=== PATIENT | female | born 2000 | race Caucasian/White ===

== ENCOUNTER 2019-05-06 11:33 | Emergency (ER) | payer OTHER ==
--- NOTE | 2019-05-06 11:46 | ER Document Report ---
ED Medical Screen (RME) - General Chief Complaint: Vaginal Bleeding Stated Complaint: BLEEDING Time Seen by Provider: 05/06/19 11:42 Mode of Arrival: Ambulatory Information source: Patient Notes: This 18-year-old female G1, P0 presents to the emergency department with complaints of noticing blood in the toilet and blood when she wiped this morning. Patient is approximately 12 weeks . Has not been assigned to HEREDIT[facility] PROGRAM COORDINATOR by [facility] [place] yet. No other complaints such as fever vomiting diarrhea. Reports slight abdominal cramps declines Tylenol. I have greeted and performed a rapid initial assessment of this patient. A comprehensive ED assessment and evaluation of the patient, analysis of test results and completion of the medical decision making process will be conducted by additional ED providers. Dictation of this chart was performed using voice recognition software; therefore, there may be some unintended grammatical errors. - Related Data Allergies/Adverse Reactions: No Known Allergies Allergy (Verified 05/06/19 11:34) Past Medical History - Social History Frequency of alcohol use: None Drug Abuse: None Physical Exam - Vital signs Vitals: Temp Pulse Resp BP Pulse Ox 98.2 F 94 H 14 119/66 97 05/06/19 11:34 05/06/19 11:34 05/06/19 11:34 05/06/19 11:34 05/06/19 11:34 Course - Vital Signs Vital signs: Temp Pulse Resp BP Pulse Ox 98.2 F 94 H 14 119/66 97 05/06/19 11:34 05/06/19 11:34 05/06/19 11:34 05/06/19 11:34 05/06/19 11:34
[2019-05-06 12:21] LABS: ABSOLUTE EOSINOPHILS # (AUTO) 0.2 10^3/uL (0.0-0.6); ABSOLUTE LYMPHOCYTES (AUTO) 1.2 10^3/uL (0.5-4.7); ABSOLUTE MONOCYTES (AUTO) 0.4 10^3/uL (0.1-1.4); ABSOLUTE NEUT (AUTO) 7.3 10^3/uL (1.7-8.2); BASOPHILS % (AUTO) 0.4 % (0-2); EOSINOPHILS % (AUTO) 2.3 % (0-6); HEMATOCRIT 37.6 % (36.0-47.0); HEMOGLOBIN 13.1 g/dL (12.0-15.5); LYMPHOCYTES % (AUTO) 13.6 % (13-45); MEAN CORPUSCULAR HEMOGLOBIN 30.1 pg (27.0-33.4); MEAN CORPUSCULAR HGB CONC 34.8 g/dL (32.0-36.0); MEAN CORPUSCULAR VOLUME 87 fl (80-97); MONOCYTES % (AUTO) 4.3 % (3-13); PLATELET COUNT 257 10^3/uL (150-450); RED BLOOD COUNT 4.33 10^6/uL (3.72-5.28); RED CELL DISTRIBUTION WIDTH 12.7 % (11.5-14.0); SEGMENTED NEUTROPHILS % (AUTO) 79.4 % (42-78); TOTAL CELLS COUNTED % (AUTO) 100 %; WHITE BLOOD COUNT 9.1 10^3/uL (4.0-10.5)
[2019-05-06 12:27] LABS: APPEARANCE,URINE SLIGHTLY-CLOUDY; BILIRUBIN,URINE NEGATIVE (NEGATIVE); COLOR,URINE YELLOW; GLUCOSE, URINE NEGATIVE (NEGATIVE); KETONES,URINE NEGATIVE (NEGATIVE); LEUKOCYTE ESTERASE,URINE NEGATIVE (NEGATIVE); NITRITE,URINE NEGATIVE (NEGATIVE); PROTEIN,URINE NEGATIVE (NEGATIVE); URINE SPECIFIC GRAVITY 1.017; UROBILINOGEN,URINE NEGATIVE mg/dL (<2.0)
[2019-05-06 12:40] LABS: ALBUMIN 4.2 g/dL (3.7-5.6); ALKALINE PHOSPHATASE 57 U/L (50-135); ANION GAP 10 (5-19); ASPARTATE AMINO TRANSFERASE 21 U/L (5-30); BILIRUBIN,DIRECT 0.1 mg/dL (0.0-0.4); BILIRUBIN,TOTAL 0.1 mg/dL (0.2-1.3); BLOOD UREA NITROGEN 9 mg/dL (7-20); CALCIUM 9.9 mg/dL (8.4-10.2); CARBON DIOXIDE 25 mmol/L (22-30); CHLORIDE 103 mmol/L (98-107); GLUCOSE 82 mg/dL (75-110); POTASSIUM 4.2 mmol/L (3.6-5.0); TOTAL PROTEIN 6.8 g/dL (6.3-8.2)
--- NOTE | 2019-05-06 13:33 | RADIOLOGY REPORT (SQ) ---
EXAM DESCRIPTION: U/S OB TRANSVAGINAL W/O DOP COMPLETED DATE/TIME: 05/06/2019 1:22 pm REASON FOR STUDY: VAG BLEED PREG COMPARISON: None. TECHNIQUE: Transabdominal static and realtime grayscale images acquired of the pelvis. Additional se lected spectral and color Doppler images recorded. All images stored on PACs. bHCG: Pending CLINICAL DATES: 12 weeks, 3 days LIMITATIONS: None. FINDINGS: FETUS: Single Living intrauterine . ULTRASOUND EGA: 12 weeks, 4 days ULTRASOUND JUAN MIGUEL: 11/14/2019 EFW: Not applicable less than 20 weeks. CRL: 6.1 cm FHR: 162 beats per minute. SURVEY: Too early to assess. AMNIOTIC FLUID: Adequate amount. PLACENTA: Anterior SUBCHORIONIC BLEED: No. SIZE OF BLEED: Not applicable. UTERUS: No masses. No anomalies. CERVICAL LENGTH: 2.7 cm Closed. RIGHT ADNEXA: Normal ovary with normal vascular flow. No adnexal free fluid. No adnexal masses. LEFT ADNEXA: Normal ovary with normal vascular flow. No adnexal free fluid. No adnexal masses. FREE FLUID: None. OTHER: No other significant finding. IMPRESSION: LIVING INTRAUTERINE . EGA 12 weeks, 4 days Trimester of : First trimester - 0 to 13 weeks. TECHNICAL DOCUMENTATION: JOB ID: [id number] [employer]- All Rights Reserved rev-01/01 Reading location - IP/workstation name: [email or web address]
--- NOTE | 2019-05-06 15:50 | ER Document Report ---
ED General - General Chief Complaint: Vaginal Bleeding Stated Complaint: BLEEDING Time Seen by Provider: 05/06/19 11:42 Primary Care Provider: JV VAZQUEZ MD [Primary Care Provider] - Follow up as needed Mode of Arrival: Ambulatory - [facility] Notes: 18-year-old female to the emergency department with complaints of vaginal bleeding that began this morning. She states that she is about 12 weeks . She states that she has not had an ultrasound because she has not been seen by OB through [facility] [place]. She states that she had a gush of blood and some pelvic cramping. She states she has not seen any clots or tissue. This is her first . She denies any urinary complaints. She denies any flank pain. She denies any fevers, chills, chest pain, shortness of breath. She denies any vaginal discharge. - Related Data Allergies/Adverse Reactions: No Known Allergies Allergy (Verified 05/06/19 11:34) Past Medical History - General Information source: Patient, Relative - Social History Smoking Status: Current Some Day Smoker Frequency of alcohol use: None Drug Abuse: None Lives with: Spouse/Significant other Family History: Reviewed & Not Pertinent Patient has suicidal ideation: No Patient has homicidal ideation: No Review of Systems - Review of Systems Constitutional: denies: Chills, Fever EENT: No symptoms reported Cardiovascular: denies: Chest pain, Palpitations, Heart racing, Dyspnea, Syncope, Dizziness, Lightheaded Respiratory: denies: Cough, Short of breath Gastrointestinal: Abdominal pain. denies: Diarrhea, Nausea, Vomiting Genitourinary: denies: Burning, Dysuria, Discharge, Frequency, Flank pain Female Genitourinary: , Vaginal bleeding. denies: Vaginal discharge Musculoskeletal: No symptoms reported Skin: No symptoms reported Hematologic/Lymphatic: No symptoms reported Neurological/Psychological: No symptoms reported -: Yes All other systems reviewed and negative Physical Exam - Vital signs Vitals: Temp Pulse Resp BP Pulse Ox 98.2 F 94 H 14 119/66 97 05/06/19 11:34 05/06/19 11:34 05/06/19 11:34 05/06/19 11:34 05/06/19 11:34 Interpretation: Normal - General General appearance: Appears well, Alert In distress: None - HEENT Head: Normocephalic, Atraumatic Eyes: Normal Pupils: PERRL - Respiratory Respiratory status: No respiratory distress Chest status: Nontender Breath sounds: Normal Chest palpation: Normal - Cardiovascular Rhythm: Regular Heart sounds: Normal auscultation Murmur: No - Abdominal Inspection: Normal Distension: No distension Bowel sounds: Normal Tenderness: Nontender Organomegaly: No organomegaly - Genitourinary External exam: Normal Speculum exam: Cervix closed. No: Products of conception Vaginal bleeding: Moderate Biman[place] exam: Normal, Uterus enlarged. No: Cervical motion tender, Adnexal mass, Adnexal tenderness Notes: Chaperoned by texting me. Noted blood in vaginal vault but cervix is closed. No evidence of products of conception emanating from the cervix. She has no cervical motion tenderness and no adnexal tenderness. She has no evidence of mass in the adnexa. She has a mildly enlarged uterus. External genitalia is within normal limits without lesions. - Back Back: Normal, Nontender. No: CVA tenderness - Neurological Neuro grossly intact: Yes Cognition: Normal Orientation: AAOx4 Stevan Coma Scale Eye Opening: Spontaneous [place] Coma Scale Verbal: Oriented [place] Coma Scale Motor: Obeys Commands [place] Coma Scale Total: 15 Speech: Normal Motor strength normal: LUE, RUE, LLE, RLE Sensory: Normal - Psychological Associated symptoms: Normal affect, Normal mood - Skin Skin Temperature: Warm Skin Moisture: Dry Skin Color: Normal Course - Re-evaluation Re-evalutation: 05/06/19 15:48 Laboratory 05/06/19 05/06/19 05/06/19 11:50 11:50 11:50 WBC 9.1 RBC 4.33 Hgb 13.1 Hct 37.6 MCV 87 MCH 30.1 MCHC 34.8 RDW 12.7 Plt Count 257 Lymph % (Auto) 13.6 [place] % (Auto) 4.3 Eos % (Auto) 2.3 Baso % (Auto) 0.4 Absolute Neuts (auto) 7.3 Absolute Lymphs (auto) 1.2 Absolute Monos (auto) 0.4 Absolute Eos (auto) 0.2 Absolute Basos (auto) 0.0 Seg Neutrophils % 79.4 H Sodium 137.7 Potassium 4.2 Chloride 103 Carbon Dioxide 25 Anion Gap 10 BUN 9 Creatinine 0.47 L Est GFR ( Amer) > 60 Est GFR (MDRD) Non-Af > 60 Glucose 82 Calcium 9.9 Total Bilirubin 0.1 L Direct Bilirubin 0.1 Neonat Total Bilirubin Not Reportable Neonat Direct Bilirubin Not Reportable Neonat Indirect Bili Not Reportable AST 21 ALT 9 Alkaline Phosphatase 57 Total Protein 6.8 Albumin 4.2 Beta HCG, Quant 05795.00 H Total Beta HCG POSITIVE Urine Color YELLOW Urine Appearance SLIGHTLY-CLOUDY Urine pH 7.0 Ur Specific [place] 1.017 Urine Protein NEGATIVE Urine Glucose (UA) NEGATIVE Urine Ketones NEGATIVE Urine Blood SMALL H Urine Nitrite NEGATIVE Urine Bilirubin NEGATIVE Urine Urobilinogen NEGATIVE Ur Leukocyte Esterase NEGATIVE Urine WBC (Auto) 5 Urine RBC (Auto) 4 Squamous Epi Cells Auto 2 Urine Mucus (Auto) RARE Urine Yeast (Budding) PRESENT Urine Ascorbic Acid NEGATIVE Blood Type Rhogam Indicated 05/06/19 11:50 WBC RBC Hgb Hct MCV MCH MCHC RDW Plt Count Lymph % (Auto) [place] % (Auto) Eos % (Auto) Baso % (Auto) Absolute Neuts (auto) Absolute Lymphs (auto) Absolute Monos (auto) Absolute Eos (auto) Absolute Basos (auto) Seg Neutrophils % Sodium Potassium Chloride Carbon Dioxide Anion Gap BUN Creatinine Est GFR ( Amer) Est GFR (MDRD) Non-Af Glucose Calcium Total Bilirubin Direct Bilirubin Neonat Total Bilirubin Neonat Direct Bilirubin Neonat Indirect Bili AST ALT Alkaline Phosphatase Total Protein Albumin Beta HCG, Quant Total Beta HCG Urine Color Urine Appearance Urine pH Ur Specific [place] Urine Protein Urine Glucose (UA) Urine Ketones Urine Blood Urine Nitrite Urine Bilirubin Urine Urobilinogen Ur Leukocyte Esterase Urine WBC (Auto) Urine RBC (Auto) Squamous Epi Cells Auto Urine Mucus (Auto) Urine Yeast (Budding) Urine Ascorbic Acid Blood Type A POSITIVE Rhogam Indicated RHOGAM NOT INDICATED Obstetrics Ultrasound 05/06/19 11:44 IMPRESSION: LIVING INTRAUTERINE . EGA 12 weeks, 4 days Trimester of : First trimester - 0 to 13 weeks. Impression: Vaginal bleeding and first trimester , threatened miscarriage. Noted type and Rh as well as hormone. Noted urinalysis. Noted ultrasound with IUP with heart rate of 162 measuring approximately 12 weeks. On pelvic exam patient does have some blood in the vault but the cervix is closed. Will have her follow-up closely with PCM and DIRECTOR BIOINFORMATICS on Thursday. Have urged her to return immediately if she has any worsening symptoms such as heavy vaginal bleeding, worsening abdominal pain, fevers, chills, intractable vomiting, passing out, shortness of breath, chest pain. She and her partner who is bedside agree with the plan. - Vital Signs Vital signs: Temp Pulse Resp BP Pulse Ox 98.2 F 94 H 14 119/66 97 05/06/19 11:34 05/06/19 11:34 05/06/19 11:34 05/06/19 11:34 05/06/19 11:34 - Laboratory Result Diagrams: 05/06/19 11:50 05/06/19 11:50 Laboratory results interpreted by me: 05/06/19 05/06/19 05/06/19 11:50 11:50 11:50 Seg Neutrophils % 79.4 H Creatinine 0.47 L Total Bilirubin 0.1 L Beta HCG, Quant 48808.00 H Urine Blood SMALL H Discharge - Discharge Clinical Impression: Threatened miscarriage, Vaginal bleeding Condition: Stable Disposition: HOME, SELF-CARE Instructions: Threatened Miscarriage ([facility]) Additional Instructions: Pelvic restno sex, douching, tampons and vagina. Follow-up with DIRECTOR BIOINFORMATICS and PCM on Thursday without fail. Return immediately if any worsening symptoms such as heavy vaginal bleeding, worsening abdominal pain, fevers, chills, intractable vomiting, passing out, shortness of breath, chest pain. Continue vitamins. Rest and push fluids at home. You may take Tylenol for any pelvic pain. Referrals: JV VAZQUEZ MD [Primary Care Provider] - 05/09/19 MARGOTH CRYSTAL MD [ACTIVE STAFF] - Follow up in 3-5 days (for OB follow up)
[2019-05-06 17:36] VITALS: BP 112/66
== END 2019-05-06 16:40 | disposition home or self-care (01) ==
LOC: ER 11:33
DX: O20.0 Threatened abortion (principal); O99.331 Smoking (tobacco) complicating pregnancy, first trimester; Z3A.12 12 weeks gestation of pregnancy
CPT/HCPCS: 36415; 76817; 80053; 81001; 84702; 85025; 86900; 86901; 99284

== ENCOUNTER → 2019-06-28 | Outpatient (CLI) | payer OTHER ==
--- NOTE | 2019-06-28 11:49 | RADIOLOGY REPORT (SQ) ---
EXAM DESCRIPTION: U/S OB 14+ TRNABD 1GES W/O DOP COMPLETED DATE/TIME: 06/28/2019 11:21 am REASON FOR STUDY: ANATOMY SCAN COMPARISON: 05/06/2019 TECHNIQUE: Static and Dynamic grayscale imaging performed of gravid uterus using transabdominal appr oach. Additional selected color Doppler and spectral images recorded. All stored on PACS. LIMITATIONS: None. FINDINGS: FETUSES SEEN:1 EGA: 20 weeks 4 days Calculated using BPD,FL,HC,AC documented on images. No significant discrepancy with clinical dates. JUAN MIGUEL: 11/11/2019 EFW: 383 g grams PERCENTILE: Not applicable. Fetus less than or equal to 20 weeks gestation. LV P: 4 cm PLACENTA: Anterior grade 1 PRESENTATION: Breech ANATOMY: HEART RATE: 162 beats per minute. FOUR CHAMBER HEART: Visualized. THREE VESSEL CORD: Yes. CORD INSERTION: Visualized. KIDNEYS AND BLADDER: Visualized. Appear normal. STOMACH: Visualized. Appears normal. SPINE: Generally normal. Limited evaluation because of positioning. BRAIN AND LATERAL VENTRICLES: Visualized. Appear normal. OTHER: No other significant finding. MATERNAL ADNEXA: Maternal ovaries unremarkable. CERVICAL LENGTH: 3.7 cm. Closed. OTHER: No other significant finding. IMPRESSION: LIVING INTRAUTERINE . ESTIMATED GESTATIONAL AGE 20 weeks 4 days NO VISUALIZED ANOMALIES. Trimester of : Second trimester - 13 weeks 1 day to 27 weeks 6 days. TECHNICAL DOCUMENTATION: JOB ID: [id number]- All Rights Reserved Reading location - IP/workstation name: [email or web address]
== END ==
LOC: RAD 10:37
PROVIDERS: ATTEND Advanced Practice Midwife
DX: Z34.02 Encounter for supervision of normal first pregnancy, second trimester (principal); Z3A.20 20 weeks gestation of pregnancy
CPT/HCPCS: 76805